=== PATIENT | female | born 1935 | race Caucasian/White ===

== ENCOUNTER → 2019-05-13 10:59 | Outpatient (CLI) | payer MEDICARE, MEDICAID, SELFPAY ==
--- NOTE | 2019-05-13 | DI.CT.S_ITS ---
PROCEDURE: CT ABDOMEN PELVIS WO CON INDICATIONS: Generalized abdominal pain TECHNIQUE: After the administration of oral contrast, 5 mm thick sections acquired from the diaphragms to the symphysis. 5 mm coronal and sagittal reformats were performed. For radiation dose reduction, the following was used: automated exposure control, adjustment of mA and/or kV according to patient size. COMPARISON: None. FINDINGS: Image quality: Excellent. ABDOMEN: Lung bases: Lung bases are clear. Heart size is normal. Solid organs: Liver is normal in size. Gallbladder is unremarkable. Pancreas is normal in size. Spleen is normal in size. No adrenal nodules. Both kidneys are normal in size, without hydronephrosis or nephrolithiasis. Peritoneum and bowel: Moderate hiatal hernia. Mobile cecum, in the upper abdomen. Question malignant narrowing of the ascending colon versus marked inflammatory or ischemic narrowing of the ascending colon. Mild inflammatory change in the surrounding fat. Large amount of fecal debris present in the transverse colon. There is mild diffuse rectal wall thickening. There is a moderately large rectal fecal impaction. Nodes and vessels: No retroperitoneal or mesenteric adenopathy by size criteria. Aorta and inferior vena cava are normal in size. Miscellaneous: No ventral hernias. PELVIS: Genitourinary: Bladder wall thickness is normal. Miscellaneous: Bilateral inguinal hernias containing nonobstructed bowel. Uterus is surgically absent. Bones: No suspicious bony lesions. No vertebral body compression fractures. IMPRESSION: 1. Abnormal ascending colon, possibly representing a malignancy versus inflammatory or ischemic colitis. 2. Mobile cecum incidentally noted. 3. Large amount of fecal debris. 4. Moderately large rectal fecal impaction. Rectum is thickened. 5. Moderate hiatal hernia. 6. Bilateral inguinal hernias containing nonobstructed bowel. Dictated by: Jacob Moise M.D. on 05/13/2019 at 14:20 Approved by: Jacob Moise M.D. on 05/13/2019 at 14:35
== END ==
PROVIDERS: Referring Provider Internal Medicine; Visit Provider Internal Medicine
DX: R10.84 Generalized abdominal pain (principal); Q43.3 Congenital malformations of intestinal fixation; K59.00 Constipation, unspecified; K40.20 Bilateral inguinal hernia, without obstruction or gangrene, not specified as recurrent; K44.9 Diaphragmatic hernia without obstruction or gangrene; Z90.710 Acquired absence of both cervix and uterus
CPT/HCPCS: 74176

== ENCOUNTER → 2019-05-16 09:49 | Outpatient (CLI) | payer MEDICARE, MEDICAID, SELFPAY ==
[2019-05-16 10:38] LABS: Add Manual Diff / Slide Review NO; Basophils Absolute Auto 100 /uL (0-100); Basophils Percent Auto 1.2 % (0-2); Eosinophils Absolute Auto 200 /uL (0-450); Eosinophils Percent Auto 2.8 % (2-4); Hematocrit 42.1 % (36-46); Hemoglobin 14.1 g/dL (12.0-16.0); Lymphocytes Absolute Auto 1700 /uL (1100-4500); Lymphocytes Percent Auto 27.6 % (25-40); Mean Corpuscular HGB Conc 33.5 % (30-36); Mean Corpuscular Hemoglobin 30.1 PG (26-34); Mean Corpuscular Volume 89.8 fL (80-100); Monocytes Absolute Auto 500 /uL (0-900); Monocytes Percent Auto 8.7 % (3-14); Neutrophils Absolute Auto 3700 /uL (1500-7000); Neutrophils Percent Auto 59.7 % (50-75); Platelet Count 297 X10^3/uL (150-400); Red Blood Cell Count 4.69 X10^6/uL (4.0-5.2); Red Cell Distribution Width 13.6 % (11.6-14.8); White Blood Cell Count 6.2 X10^3/uL (4.5-11.0)
[2019-05-16 11:19] LABS: Alanine Aminotransferase 10 IU/L (<35); Albumin 4.4 g/dL (3.5-5.0); Albumin Globulin Ratio 1.4 (1.0-2.8); Alkaline Phosphatase 74 U/L (38-126); Aspartate Aminotransferase 22 IU/L (14-36); BUN Creatinine Ratio 17.5 (6-22); Bilirubin Total 0.4 mg/dL (0.2-1.3); Blood Urea Nitrogen 14 mg/dL (7-17); Calcium 10.2 mg/dL (8.4-10.2); Carbon Dioxide 31 mmol/L (22-32); Chloride 104 mmol/L (98-107); Estimated Glomerular Filt Rate > 60.0 mL/min (>60); Globulin 3.2 g/dL (1.7-4.1); Glucose 98 mg/dL (80-110); HEMOLYSIS < 15 (0-50); Potassium 4.8 mmol/L (3.4-5.1); Sodium 141 mmol/L (137-145); Total Protein 7.6 g/dL (6.3-8.2)
== END ==
PROVIDERS: PCP Internal Medicine; Referring Provider Internal Medicine; Visit Provider Internal Medicine
DX: R10.84 Generalized abdominal pain (principal)
CPT/HCPCS: 36415; 80053; 85025

== ENCOUNTER → 2020-07-06 12:07 | Outpatient (CLI) | payer MEDICARE, MEDICAID, SELFPAY ==
[2020-07-06] MEDS: COVID-19 VACC #1, MRNA(MOD) 100 MCG/0.5 ML VIAL IM (12:14)
== END ==
PROVIDERS: PCP Internal Medicine; Visit Provider Internal Medicine
DX: Z23 Encounter for immunization (principal)
CPT/HCPCS: 0011A; 91301

== ENCOUNTER → 2020-08-03 12:09 | Outpatient (CLI) | payer MEDICARE, MEDICAID, SELFPAY ==
[2020-08-03] MEDS: COVID-19 VACC #2, MRNA(MOD) 100 MCG/0.5 ML VIAL IM (12:22)
== END ==
PROVIDERS: PCP Internal Medicine; Visit Provider Internal Medicine
DX: Z23 Encounter for immunization (principal)
CPT/HCPCS: 0012A; 91301

== ENCOUNTER 2021-05-01 10:30 | Outpatient (RCR) | payer OTHER, MEDICAID, SELFPAY ==
--- NOTE | 2021-03-14 16:00 | PT.OIE ---
Current Diagnoses Scoliosis, unspecified (03/14/21) Pain in thoracic spine (03/14/21) Visit Care Team Role Provider Type Alex Tan MD Attending Provider Physician Family Provider Primary Care Provider Referring Provider Specialty: Family Practice Address: [facility] [place], [address] Email: [email or web address] Physical Therapy Initial Evaluation PT-OP-A Visit Information Start: 03/13/21 15:57 Freq: Status: Active Protocol: Document 03/14/21 11:15 AMB (Rec: 03/15/21 15:57 AMB [email or web address]) Out-Patient Physical Therapy Visit Information Visit Information Visit Type Initial Evaluation Visit Start Time 11:15 Visit Stop Time 12:00 Total Visit Minutes 45 Visit Number 1 PT-OP-B Current Condition Start: 03/13/21 15:57 Freq: Status: Active Protocol: Document 03/14/21 11:18 AMB (Rec: 03/14/21 11:31 AMB [id number]) Current Condition History of Current Condition Onset Date chronic Current Complaints R sided back pain History of Current Condition Didn't have back problems until age 61. Then had to go to a chiropractor. Does get back spasms a couple times a month. A couple of weeks ago went 4 days with little sleep due to the pain. Denies numbness/ tingling/radiating sx. Used to walk around the block but hasn't in the past few months due to the pain. Does go grocery shopping but otherwise doesn't walk much. Lives alone, has a son who lives in [place]. Treatment Goals Patient/Caregiver Goals Reduce pain Prior Functional Status Baseline Function- ADL's Modified Independent Baseline Function- Mobility Modified Independent Personal Factors Other Personal Factors That May Effect cognition Therapy/Recovery PT-OP-C Subjective Start: 03/13/21 15:57 Freq: Status: Active Protocol: Document 03/14/21 11:15 AMB (Rec: 03/17/21 09:48 AMB [email or web address]) Patient Questionnaires Oswestry Low Back Index Oswestry Score 31 Oswestry Impairment 20 to 39% Impaired (Score 20- 39) PT-OP-G Mobility & Gait Start: 03/13/21 15:57 Freq: Status: Active Protocol: Document 03/14/21 11:15 AMB (Rec: 03/17/21 09:48 AMB [email or web address]) OP Gait Assessment Comments Gait Comments Decreased trunk rotation with gait PT-OP-J Posture/Palpation/Skin Start: 03/13/21 15:57 Freq: Status: Active Protocol: Document 03/14/21 11:15 AMB (Rec: 03/17/21 09:48 AMB [email or web address]) Posture Evaluation Comments Posture Comments Rib hump on right thoracic spine with forward flexion. Stiff spine throughout Palpation Assessment Location One Palpation Details Tigth QL on R PT-OP-K Range of Motion Start: 03/13/21 15:57 Freq: Status: Active Protocol: Document 03/14/21 11:15 AMB (Rec: 03/17/21 09:48 AMB [email or web address]) Lumbar Spine Range of Motion Lumbar Spine Active Percentage Testing Position Standing Flexion 50 Extension 10 Lateral Flexion Left 25 Lateral Flexion Right 50 Ankle and Foot Goniometric Range of Motion Ankle and Foot ROM Limitations Comments dorsiflexion limited to neutral bilaterally PT-OP-M Strength Start: 03/13/21 15:57 Freq: Status: Active Protocol: Document 03/14/21 11:15 AMB (Rec: 03/17/21 09:48 AMB [email or web address]) Hip Strength Hip Manual Muscle Testing Right Flexion (L2) 4- Good- Extension (S1) 4- Good- Abduction 4 Good Left Flexion (L2) 4- Good- Extension (S1) 4- Good- Abduction 4 Good PT-OP-Q Treatments Start: 03/13/21 15:57 Freq: Status: Active Protocol: Document 03/14/21 11:15 AMB (Rec: 03/17/21 09:48 AMB [email or web address]) Therapeutic Exercises Supine Exercises 3 Supine Exercise Name ousmane pose- lateral 2 Supine Exercise Name Open book Reps/Minutes 10 1 Supine Exercise Name LTR Reps/Minutes 10 PT-OP-T Assessment and Plan Start: 03/13/21 15:57 Freq: Status: Active Protocol: Document 03/14/21 11:15 AMB (Rec: 03/17/21 10:08 AMB [email or web address]) Physical Therapy Assessment Rehab Potential Rehabilitation Potential Fair Evaluation Complexity Number of Personal Factors/Comorbidities 1-2 Number of Body Systems Impaired 4 or More Clinical Presentation at Evaluation Evolving Impairments Impairments Activity Tolerance,Functional Activities,Gait,Pain,Posture, ROM,Strength Goals Two Impairment Pain Short Term Goal (STG) Kaelyn will walk for 6 minutes without an increase in back pain. STG Duration 4 weeks Half-Way Goal (LTG) Kaelyn will roll over in bed without back pain. LTG Duration 8 weeks One Impairment HEP Short Term Goal (STG) Kaelyn will be independent and consistent with a HEP for gentle range of motion and core strengthening. STG Duration 4 weeks Assessment Summary Assessment Kaelyn attends physical therapy with a 4 month exacerbation of her chronic midback pain. She does have moderate scoliosis. She states she doesn't have osteoporosis but can't tell me when her last DEXA was, I do not have records one way or the other. Her history was somewhat fragmented, but it sounds like she was more active historically, but now has a difficult time walking because of back spasms which come on for days at time and make it difficult to move or to sleep. She is specifically hoping there is something she can do for the back spasms, but is unable to say what causes them or how often the come on, or really any sort of pattern to them. Will educate in an appropriate HEP and offer modalities, self care for when she does get a spasm. Physical Therapy Plan Frequency and Duration Frequency of Treatment 2x/Week Duration of Treatment 8 weeks Plan of Care Start Date 03/14/21 Plan of Care End Date 05/09/21 Therapeutic Interventions Therapeutic Interventions Home Exercise Program,Manual Therapy,Neuromuscular Re- education,Self-Care/Home Management,Therapeutic Activities,Therapeutic Exercises Modalities Cold Pack/Ice Massage,Electric Stimulation,Hot Packs Next Visit Focus/Plan Next Note Type Treatment Note Next Visit Plan follow up on HEP: LTR, open book, ousmane pose. Could consider e-stim/heat if pt is having muscle spasm.
--- NOTE | 2021-03-14 16:00 | PT.OPPOC ---
Physical, Occupational & Speech Therapy At [facility] Current Diagnoses Scoliosis, unspecified (03/14/21) Pain in thoracic spine (03/14/21) Visit Care Team Role Provider Type Alex Tan MD Attending Provider Physician Family Provider Primary Care Provider Referring Provider Specialty: Family Practice Address: [facility] [place], [facility] Email: [email or web address] Plan Of Care PT-OP-T Assessment and Plan Start: 03/13/21 15:57 Freq: Status: Active Protocol: Document 03/14/21 11:15 AMB (Rec: 03/17/21 10:08 AMB [email or web address]) Physical Therapy Assessment Rehab Potential Rehabilitation Potential Fair Evaluation Complexity Number of Personal Factors/Comorbidities 1-2 Number of Body Systems Impaired 4 or More Clinical Presentation at Evaluation Evolving Impairments Impairments Activity Tolerance,Functional Activities,Gait,Pain,Posture, ROM,Strength Goals Two Impairment Pain Short Term Goal (STG) Kaelyn will walk for 6 minutes without an increase in back pain. STG Duration 4 weeks Retirement Goal (LTG) Kaelyn will roll over in bed without back pain. LTG Duration 8 weeks One Impairment HEP Short Term Goal (STG) Kaelyn will be independent and consistent with a HEP for gentle range of motion and core strengthening. STG Duration 4 weeks Assessment Summary Assessment Kaelyn attends physical therapy with a 4 month exacerbation of her chronic midback pain. She does have moderate scoliosis. She states she doesn't have osteoporosis but can't tell me when her last DEXA was, I do not have records one way or the other. Her history was somewhat fragmented, but it sounds like she was more active historically, but now has a difficult time walking because of back spasms which come on for days at time and make it difficult to move or to sleep. She is specifically hoping there is something she can do for the back spasms, but is unable to say what causes them or how often the come on, or really any sort of pattern to them. Will educate in an appropriate HEP and offer modalities, self care for when she does get a spasm. Physical Therapy Plan Frequency and Duration Frequency of Treatment 2x/Week Duration of Treatment 8 weeks Plan of Care Start Date 03/14/21 Plan of Care End Date 05/09/21 Therapeutic Interventions Therapeutic Interventions Home Exercise Program,Manual Therapy,Neuromuscular Re- education,Self-Care/Home Management,Therapeutic Activities,Therapeutic Exercises Modalities Cold Pack/Ice Massage,Electric Stimulation,Hot Packs Next Visit Focus/Plan Next Note Type Treatment Note Next Visit Plan follow up on HEP: LTR, open book, ousmane pose. Could consider e-stim/heat if pt is having muscle spasm. Plan of Care Dates Plan of Care Start Date 03/14/21 Plan of Care End Date 05/09/21 Electronically Signed by: Erin Ferro, PT 03/17/21 1002 Please Sign and Return: I have reviewed this Plan of Care and certify that the skilled therapy services above are required to meet the patient?s needs. Physician Signature Date Printed Name and Credentials Clinical Instructor Signature Printed Name and Credentials
--- NOTE | 2021-03-20 14:27 | PT.OTN ---
Current Diagnoses Scoliosis, unspecified (03/20/21) Pain in thoracic spine (03/20/21) Physical Therapy Treatment Note PT-OP-A Visit Information Start: 03/13/21 15:57 Freq: Status: Active Protocol: Document 03/20/21 09:00 AMB (Rec: 03/20/21 14:26 AMB [email or web address]) Out-Patient Physical Therapy Visit Information Visit Information Visit Type Treatment Note Visit Start Time 09:00 Visit Stop Time 09:55 Total Visit Minutes 55 Visit Number 2 PT-OP-B Current Condition Start: 03/13/21 15:57 Freq: Status: Active Protocol: Document 03/14/21 11:18 AMB (Rec: 03/14/21 11:31 AMB [id number]) Current Condition History of Current Condition Onset Date chronic Current Complaints R sided back pain History of Current Condition Didn't have back problems until age 61. Then had to go to a chiropractor. Does get back spasms a couple times a month. A couple of weeks ago went 4 days with little sleep due to the pain. Denies numbness/ tingling/radiating sx. Used to walk around the block but hasn't in the past few months due to the pain. Does go grocery shopping but otherwise doesn't walk much. Lives alone, has a son who lives in [place]. Treatment Goals Patient/Caregiver Goals Reduce pain Prior Functional Status Baseline Function- ADL's Modified Independent Baseline Function- Mobility Modified Independent Personal Factors Other Personal Factors That May Effect cognition Therapy/Recovery PT-OP-C Subjective Start: 03/13/21 15:57 Freq: Status: Active Protocol: Document 03/20/21 09:00 AMB (Rec: 03/20/21 14:26 AMB [email or web address]) OP-PT Subjective Patient Comments Patient Comments Pt states she has tried the exercises at home and they went ok, no new spasms PT-OP-G Mobility & Gait Start: 03/13/21 15:57 Freq: Status: Active Protocol: Document 03/14/21 11:15 AMB (Rec: 03/17/21 09:48 AMB [email or web address]) OP Gait Assessment Comments Gait Comments Decreased trunk rotation with gait PT-OP-J Posture/Palpation/Skin Start: 03/13/21 15:57 Freq: Status: Active Protocol: Document 03/14/21 11:15 AMB (Rec: 03/17/21 09:48 AMB [email or web address]) Posture Evaluation Comments Posture Comments Rib hump on right thoracic spine with forward flexion. Stiff spine throughout Palpation Assessment Location One Palpation Details Tigth QL on R PT-OP-K Range of Motion Start: 03/13/21 15:57 Freq: Status: Active Protocol: Document 03/14/21 11:15 AMB (Rec: 03/17/21 09:48 AMB [email or web address]) Lumbar Spine Range of Motion Lumbar Spine Active Percentage Testing Position Standing Flexion 50 Extension 10 Lateral Flexion Left 25 Lateral Flexion Right 50 Ankle and Foot Goniometric Range of Motion Ankle and Foot ROM Limitations Comments dorsiflexion limited to neutral bilaterally PT-OP-M Strength Start: 03/13/21 15:57 Freq: Status: Active Protocol: Document 03/14/21 11:15 AMB (Rec: 03/17/21 09:48 AMB [email or web address]) Hip Strength Hip Manual Muscle Testing Right Flexion (L2) 4- Good- Extension (S1) 4- Good- Abduction 4 Good Left Flexion (L2) 4- Good- Extension (S1) 4- Good- Abduction 4 Good PT-OP-Q Treatments Start: 03/13/21 15:57 Freq: Status: Active Protocol: Document 03/20/21 09:00 AMB (Rec: 03/20/21 14:26 AMB [email or web address]) Therapeutic Exercises Supine Exercises 5 Supine Exercise Name supine TA march Reps/Minutes 2x10 4 Supine Exercise Name bridges Reps/Minutes 10 3 Supine Exercise Name ousmane pose- lateral 1 Supine Exercise Name LTR Reps/Minutes 10 Sidelying Exercises 1 Sidelying Exercise Name clamshell Reps/Minutes 2x10 Sitting Exercises 1 Sitting Exercise Name 65cm Comments pelvic circles PT-OP-R Modalities Start: 03/13/21 15:57 Freq: Status: Active Protocol: Document 03/20/21 09:00 AMB (Rec: 03/20/21 14:27 AMB [email or web address]) Electric Stimulation Electric Stimulation Interferential Current (IFC) Body Location R mid/low back Duration (Minutes) 13 Patient Position Hooklying Combined With Heat/Cold Hot Pack PT-OP-T Assessment and Plan Start: 03/13/21 15:57 Freq: Status: Active Protocol: Document 03/20/21 09:00 AMB (Rec: 12/15/21 14:26 AMB [email or web address]) Physical Therapy Assessment Goals Two Impairment Pain Short Term Goal (STG) Kaelyn will walk for 6 minutes without an increase in back pain. STG Duration 4 weeks Correction Goal (LTG) Kaelyn will roll over in bed without back pain. LTG Duration 8 weeks One Impairment HEP Short Term Goal (STG) Kaelyn will be independent and consistent with a HEP for gentle range of motion and core strengthening. STG Duration 4 weeks Assessment Summary Assessment Kaelyn tolerated exercises well today, will need to follow up on how she did the next day and then prescribe a new written program. Physical Therapy Plan Next Visit Focus/Plan Next Note Type Treatment Note Next Visit Plan follow up on HEP: LTR, open book, ousmane pose. Progress written HEP
--- NOTE | 2021-03-28 16:00 | PT.OTN ---
Current Diagnoses Scoliosis, unspecified (03/28/21) Pain in thoracic spine (03/28/21) Physical Therapy Treatment Note PT-OP-A Visit Information Start: 03/13/21 15:57 Freq: Status: Active Protocol: Document 03/28/21 10:30 AMB (Rec: 04/03/21 08:16 AMB [id number]) Out-Patient Physical Therapy Visit Information Visit Information Visit Type Treatment Note Visit Start Time 10:30 Visit Stop Time 11:00 Total Visit Minutes 30 Visit Number 3 PT-OP-B Current Condition Start: 03/13/21 15:57 Freq: Status: Active Protocol: Document 03/14/21 11:18 AMB (Rec: 03/14/21 11:31 AMB [id number]) Current Condition History of Current Condition Onset Date chronic Current Complaints R sided back pain History of Current Condition Didn't have back problems until age 61. Then had to go to a chiropractor. Does get back spasms a couple times a month. A couple of weeks ago went 4 days with little sleep due to the pain. Denies numbness/ tingling/radiating sx. Used to walk around the block but hasn't in the past few months due to the pain. Does go grocery shopping but otherwise doesn't walk much. Lives alone, has a son who lives in [place]. Treatment Goals Patient/Caregiver Goals Reduce pain Prior Functional Status Baseline Function- ADL's Modified Independent Baseline Function- Mobility Modified Independent Personal Factors Other Personal Factors That May Effect cognition Therapy/Recovery PT-OP-C Subjective Start: 03/13/21 15:57 Freq: Status: Active Protocol: Document 03/28/21 10:30 AMB (Rec: 04/03/21 08:16 AMB [id number]) OP-PT Subjective Patient Comments Patient Comments No new back spasms, long car ride down to [place] went fine . Has been doing exercises. PT-OP-G Mobility & Gait Start: 03/13/21 15:57 Freq: Status: Active Protocol: Document 03/14/21 11:15 AMB (Rec: 03/17/21 09:48 AMB [email or web address]) OP Gait Assessment Comments Gait Comments Decreased trunk rotation with gait PT-OP-J Posture/Palpation/Skin Start: 03/13/21 15:57 Freq: Status: Active Protocol: Document 03/14/21 11:15 AMB (Rec: 03/17/21 09:48 AMB [email or web address]) Posture Evaluation Comments Posture Comments Rib hump on right thoracic spine with forward flexion. Stiff spine throughout Palpation Assessment Location One Palpation Details Tigth QL on R PT-OP-K Range of Motion Start: 03/13/21 15:57 Freq: Status: Active Protocol: Document 03/14/21 11:15 AMB (Rec: 03/17/21 09:48 AMB [email or web address]) Lumbar Spine Range of Motion Lumbar Spine Active Percentage Testing Position Standing Flexion 50 Extension 10 Lateral Flexion Left 25 Lateral Flexion Right 50 Ankle and Foot Goniometric Range of Motion Ankle and Foot ROM Limitations Comments dorsiflexion limited to neutral bilaterally PT-OP-M Strength Start: 03/13/21 15:57 Freq: Status: Active Protocol: Document 03/14/21 11:15 AMB (Rec: 03/17/21 09:48 AMB [email or web address]) Hip Strength Hip Manual Muscle Testing Right Flexion (L2) 4- Good- Extension (S1) 4- Good- Abduction 4 Good Left Flexion (L2) 4- Good- Extension (S1) 4- Good- Abduction 4 Good PT-OP-Q Treatments Start: 03/13/21 15:57 Freq: Status: Active Protocol: Document 03/28/21 10:30 AMB (Rec: 04/03/21 08:16 AMB [id number]) Therapeutic Exercises Supine Exercises 5 Supine Exercise Name supine TA march Reps/Minutes 2x10 4 Supine Exercise Name bridges Reps/Minutes 10 Sidelying Exercises 1 Sidelying Exercise Name clamshell Reps/Minutes 2x10 Standing Exercises 1 Standing Exercise Name mini squat Reps/Minutes 10 Comments vc for form PT-OP-R Modalities Start: 03/13/21 15:57 Freq: Status: Active Protocol: Document 03/20/21 09:00 AMB (Rec: 03/20/21 14:27 AMB [email or web address]) Electric Stimulation Electric Stimulation Interferential Current (IFC) Body Location R mid/low back Duration (Minutes) 13 Patient Position Hooklying Combined With Heat/Cold Hot Pack PT-OP-T Assessment and Plan Start: 03/13/21 15:57 Freq: Status: Active Protocol: Document 03/28/21 10:30 AMB (Rec: 04/03/21 08:16 AMB [id number]) Physical Therapy Assessment Assessment Summary Assessment Pt seemed to tolerate increased strengthening exercises well but will need to follow up regarding tolerance following. Physical Therapy Plan Frequency and Duration Frequency of Treatment 2x/Week Duration of Treatment 8 weeks Plan of Care Start Date 03/14/21 Plan of Care End Date 05/09/21 Therapeutic Interventions Therapeutic Interventions Home Exercise Program,Manual Therapy,Neuromuscular Re- education,Self-Care/Home Management,Therapeutic Activities,Therapeutic Exercises Modalities Cold Pack/Ice Massage,Electric Stimulation,Hot Packs Next Visit Focus/Plan Next Visit Plan Follow up on clam, bridge, mini squat
--- NOTE | 2021-04-09 10:25 | PT.OTN ---
Current Diagnoses Scoliosis, unspecified (04/09/21) Pain in thoracic spine (04/09/21) Physical Therapy Treatment Note PT-OP-A Visit Information Start: 03/13/21 15:57 Freq: Status: Active Protocol: Document 04/09/21 09:50 SP (Rec: 04/09/21 10:32 SP [id number]) Out-Patient Physical Therapy Visit Information Visit Information Visit Type Treatment Note Visit Start Time 09:50 Visit Stop Time 10:25 Total Visit Minutes 35 Visit Number 4 Number of JOB TRACER Visits 1 PT-OP-B Current Condition Start: 03/13/21 15:57 Freq: Status: Active Protocol: Document 03/14/21 11:18 AMB (Rec: 03/14/21 11:31 AMB [id number]) Current Condition History of Current Condition Onset Date chronic Current Complaints R sided back pain History of Current Condition Didn't have back problems until age 61. Then had to go to a chiropractor. Does get back spasms a couple times a month. A couple of weeks ago went 4 days with little sleep due to the pain. Denies numbness/ tingling/radiating sx. Used to walk around the block but hasn't in the past few months due to the pain. Does go grocery shopping but otherwise doesn't walk much. Lives alone, has a son who lives in [place]. Treatment Goals Patient/Caregiver Goals Reduce pain Prior Functional Status Baseline Function- ADL's Modified Independent Baseline Function- Mobility Modified Independent Personal Factors Other Personal Factors That May Effect cognition Therapy/Recovery PT-OP-C Subjective Start: 03/13/21 15:57 Freq: Status: Active Protocol: Document 04/09/21 09:50 SP (Rec: 04/09/21 10:32 SP [id number]) OP-PT Subjective Patient Comments Patient Comments Pt reports back feels fine. Did my exercises before came over. Not sure where going to do the standing exercise at home. PT-OP-G Mobility & Gait Start: 03/13/21 15:57 Freq: Status: Active Protocol: Document 03/14/21 11:15 AMB (Rec: 03/17/21 09:48 AMB [email or web address]) OP Gait Assessment Comments Gait Comments Decreased trunk rotation with gait PT-OP-J Posture/Palpation/Skin Start: 03/13/21 15:57 Freq: Status: Active Protocol: Document 03/14/21 11:15 AMB (Rec: 03/17/21 09:48 AMB [email or web address]) Posture Evaluation Comments Posture Comments Rib hump on right thoracic spine with forward flexion. Stiff spine throughout Palpation Assessment Location One Palpation Details Tigth QL on R PT-OP-K Range of Motion Start: 03/13/21 15:57 Freq: Status: Active Protocol: Document 03/14/21 11:15 AMB (Rec: 03/17/21 09:48 AMB [email or web address]) Lumbar Spine Range of Motion Lumbar Spine Active Percentage Testing Position Standing Flexion 50 Extension 10 Lateral Flexion Left 25 Lateral Flexion Right 50 Ankle and Foot Goniometric Range of Motion Ankle and Foot ROM Limitations Comments dorsiflexion limited to neutral bilaterally PT-OP-M Strength Start: 03/13/21 15:57 Freq: Status: Active Protocol: Document 03/14/21 11:15 AMB (Rec: 03/17/21 09:48 AMB [email or web address]) Hip Strength Hip Manual Muscle Testing Right Flexion (L2) 4- Good- Extension (S1) 4- Good- Abduction 4 Good Left Flexion (L2) 4- Good- Extension (S1) 4- Good- Abduction 4 Good PT-OP-Q Treatments Start: 03/13/21 15:57 Freq: Status: Active Protocol: Document 04/09/21 09:50 SP (Rec: 04/09/21 10:32 SP [id number]) Therapeutic Exercises Supine Exercises 5 Supine Exercise Name supine TA march Reps/Minutes 2x10 Comments cued TA fac during descent LE transition to elevating LE, no wobble 4 Supine Exercise Name bridges (performs on floor at home) Reps/Minutes x10 Comments cued not end range height and core fac, decrease LB recruit 1 Supine Exercise Name LTR- HEP review Reps/Minutes x10 Comments cued ankles together, slow movement side to side Sidelying Exercises open book Sidelying Exercise Name review HEP Side bilateral Resistance AROM Reps/Minutes 3 reps hold 5 sec Comments cued for proper form written, cued head turn with arm 1 Sidelying Exercise Name clamshell (cued L>R stationary pelvis) HEP review Side bilateral Reps/Minutes 2x10 Comments cued stationary pelvis, stacked alignment shld & hips, slow pacing control Standing Exercises 1 Standing Exercise Name mini squat Equipment Used chair back front contact, chair behind to mini squat to Reps/Minutes 10 Comments cues for hip hinge and light contact chair so not pull back , more stable Gait Training Gait Activity walking Device Used 0 Level of Assistance SBA Surface firm Distance/Duration 100ft Treatment Focus improve trunk stability, even cadance, core stability Comments cued tall posture, core facilitation, level pelvis to decrease wt shift antalgic gait. PT-OP-R Modalities Start: 03/13/21 15:57 Freq: Status: Active Protocol: Document 03/20/21 09:00 AMB (Rec: 03/20/21 14:27 AMB [email or web address]) Electric Stimulation Electric Stimulation Interferential Current (IFC) Body Location R mid/low back Duration (Minutes) 13 Patient Position Hooklying Combined With Heat/Cold Hot Pack PT-OP-T Assessment and Plan Start: 03/13/21 15:57 Freq: Status: Active Protocol: Document 04/09/21 09:50 SP (Rec: 04/09/21 10:32 SP [id number]) Physical Therapy Assessment Goals Two Impairment Pain Short Term Goal (STG) Kaelyn will walk for 6 minutes without an increase in back pain. STG Duration 4 weeks Senior Living Goal (LTG) Kaelyn will roll over in bed without back pain. LTG Duration 8 weeks One Impairment HEP Short Term Goal (STG) Kaelyn will be independent and consistent with a HEP for gentle range of motion and core strengthening. STG Duration 4 weeks Assessment Summary Assessment Pt improved clamshell form post cues for stacked alignment, core engagement and slow pacing, I feel my belly and hip muscles more with no pain just tiring. Education core engagement and posture with improved stability walking during end of tx Physical Therapy Plan Frequency and Duration Frequency of Treatment 2x/Week Duration of Treatment 8 weeks Plan of Care Start Date 03/14/21 Plan of Care End Date 05/09/21 Therapeutic Interventions Therapeutic Interventions Home Exercise Program,Manual Therapy,Neuromuscular Re- education,Self-Care/Home Management,Therapeutic Activities,Therapeutic Exercises Modalities Cold Pack/Ice Massage,Electric Stimulation,Hot Packs Next Visit Focus/Plan Next Visit Plan Recheck HEP: core marching, mini squat, bridge, side clamshell form, give hand out next tx. Progress gait stability.
--- NOTE | 2021-04-17 13:27 | PT.OTN ---
Current Diagnoses Scoliosis, unspecified (04/17/21) Pain in thoracic spine (04/17/21) Physical Therapy Treatment Note PT-OP-A Visit Information Start: 03/13/21 15:57 Freq: Status: Active Protocol: Document 04/17/21 10:30 AMB (Rec: 04/17/21 12:04 AMB [id number]) Out-Patient Physical Therapy Visit Information Visit Information Visit Type Treatment Note Visit Start Time 10:35 Visit Stop Time 11:15 Total Visit Minutes 40 Visit Number 5 PT-OP-B Current Condition Start: 03/13/21 15:57 Freq: Status: Active Protocol: Document 03/14/21 11:18 AMB (Rec: 03/14/21 11:31 AMB [id number]) Current Condition History of Current Condition Onset Date chronic Current Complaints R sided back pain History of Current Condition Didn't have back problems until age 61. Then had to go to a chiropractor. Does get back spasms a couple times a month. A couple of weeks ago went 4 days with little sleep due to the pain. Denies numbness/ tingling/radiating sx. Used to walk around the block but hasn't in the past few months due to the pain. Does go grocery shopping but otherwise doesn't walk much. Lives alone, has a son who lives in [place]. Treatment Goals Patient/Caregiver Goals Reduce pain Prior Functional Status Baseline Function- ADL's Modified Independent Baseline Function- Mobility Modified Independent Personal Factors Other Personal Factors That May Effect cognition Therapy/Recovery PT-OP-C Subjective Start: 03/13/21 15:57 Freq: Status: Active Protocol: Document 04/17/21 10:45 AMB (Rec: 04/17/21 13:27 AMB [id number]) OP-PT Subjective Patient Comments Patient Comments Had a near back spasm last week after shopping at [employer]. [place] fine the next day. PT-OP-G Mobility & Gait Start: 03/13/21 15:57 Freq: Status: Active Protocol: Document 03/14/21 11:15 AMB (Rec: 03/17/21 09:48 AMB [email or web address]) OP Gait Assessment Comments Gait Comments Decreased trunk rotation with gait PT-OP-J Posture/Palpation/Skin Start: 03/13/21 15:57 Freq: Status: Active Protocol: Document 03/14/21 11:15 AMB (Rec: 03/17/21 09:48 AMB [email or web address]) Posture Evaluation Comments Posture Comments Rib hump on right thoracic spine with forward flexion. Stiff spine throughout Palpation Assessment Location One Palpation Details Tigth QL on R PT-OP-K Range of Motion Start: 03/13/21 15:57 Freq: Status: Active Protocol: Document 03/14/21 11:15 AMB (Rec: 03/17/21 09:48 AMB [email or web address]) Lumbar Spine Range of Motion Lumbar Spine Active Percentage Testing Position Standing Flexion 50 Extension 10 Lateral Flexion Left 25 Lateral Flexion Right 50 Ankle and Foot Goniometric Range of Motion Ankle and Foot ROM Limitations Comments dorsiflexion limited to neutral bilaterally PT-OP-M Strength Start: 03/13/21 15:57 Freq: Status: Active Protocol: Document 03/14/21 11:15 AMB (Rec: 03/17/21 09:48 AMB [email or web address]) Hip Strength Hip Manual Muscle Testing Right Flexion (L2) 4- Good- Extension (S1) 4- Good- Abduction 4 Good Left Flexion (L2) 4- Good- Extension (S1) 4- Good- Abduction 4 Good PT-OP-Q Treatments Start: 03/13/21 15:57 Freq: Status: Active Protocol: Document 04/17/21 10:45 AMB (Rec: 04/17/21 13:27 AMB [id number]) Therapeutic Exercises Supine Exercises 5 Supine Exercise Name supine TA march Reps/Minutes 2x10 Comments cued TA fac during descent LE transition to elevating LE, no wobble 4 Supine Exercise Name bridges (performs on floor at home) Reps/Minutes x10 Comments cued to facilitate cues, decrease LB 1 Supine Exercise Name LTR- HEP review Reps/Minutes x10 Comments slow movement side to side Sidelying Exercises open book Sidelying Exercise Name review HEP Side bilateral Resistance AROM Reps/Minutes 3 reps hold 5 sec Comments cued for proper form written, cued head turn with arm 1 Sidelying Exercise Name clamshell (cued L>R stationary pelvis) HEP review Side bilateral Reps/Minutes 2x10 Comments cued stationary pelvis, stacked alignment shld & hips, slow pacing control Gait Training Gait Activity walking Device Used SPC- right hand Level of Assistance SBA Surface firm Distance/Duration 200 Treatment Focus improve trunk stability, even cadance, core stability Comments cued tall posture, core facilitation, level pelvis to decrease wt shift antalgic gait. PT-OP-R Modalities Start: 03/13/21 15:57 Freq: Status: Active Protocol: Document 03/20/21 09:00 AMB (Rec: 03/20/21 14:27 AMB [email or web address]) Electric Stimulation Electric Stimulation Interferential Current (IFC) Body Location R mid/low back Duration (Minutes) 13 Patient Position Hooklying Combined With Heat/Cold Hot Pack PT-OP-T Assessment and Plan Start: 03/13/21 15:57 Freq: Status: Active Protocol: Document 04/17/21 10:45 AMB (Rec: 04/17/21 13:27 AMB [id number]) Physical Therapy Assessment Goals Two Impairment Pain Short Term Goal (STG) Kaelyn will walk for 6 minutes without an increase in back pain. STG Duration 4 weeks [facility]dc Goal (LTG) Kaelyn will roll over in bed without back pain. LTG Duration 8 weeks One Impairment HEP Short Term Goal (STG) Kaelyn will be independent and consistent with a HEP for gentle range of motion and core strengthening. STG Duration 4 weeks Assessment Summary Assessment Kaelyn had difficulty not looking down while ambulating with SPC. Discussed how she could get a SPC in the community as this is her preference. Discussed appropriate height of cane and gait training. Her form with her HEP is improving, although she does not like squats, discussed purpose for them, but pt states she was sore from them for a day and does not like them. Physical Therapy Plan Frequency and Duration Frequency of Treatment 2x/Week Duration of Treatment 8 weeks Plan of Care Start Date 03/14/21 Plan of Care End Date 05/09/21 Therapeutic Interventions Therapeutic Interventions Home Exercise Program,Manual Therapy,Neuromuscular Re- education,Self-Care/Home Management,Therapeutic Activities,Therapeutic Exercises Modalities Cold Pack/Ice Massage,Electric Stimulation,Hot Packs Next Visit Focus/Plan Next Visit Plan Recheck HEP: core marching, mini squat, bridge, side clamshell form, give hand out next tx. Progress gait stability.
--- NOTE | 2021-04-24 11:29 | PT.OTN ---
Current Diagnoses Scoliosis, unspecified (04/24/21) Pain in thoracic spine (04/24/21) Physical Therapy Treatment Note PT-OP-A Visit Information Start: 03/13/21 15:57 Freq: Status: Active Protocol: Document 04/24/21 10:38 AMB (Rec: 04/24/21 11:29 AMB [id number]) Out-Patient Physical Therapy Visit Information Visit Information Visit Type Treatment Note Visit Start Time 10:35 Visit Stop Time 11:15 Total Visit Minutes 40 Visit Number 6 PT-OP-B Current Condition Start: 03/13/21 15:57 Freq: Status: Active Protocol: Document 03/14/21 11:18 AMB (Rec: 03/14/21 11:31 AMB [id number]) Current Condition History of Current Condition Onset Date chronic Current Complaints R sided back pain History of Current Condition Didn't have back problems until age 61. Then had to go to a chiropractor. Does get back spasms a couple times a month. A couple of weeks ago went 4 days with little sleep due to the pain. Denies numbness/ tingling/radiating sx. Used to walk around the block but hasn't in the past few months due to the pain. Does go grocery shopping but otherwise doesn't walk much. Lives alone, has a son who lives in [place]. Treatment Goals Patient/Caregiver Goals Reduce pain Prior Functional Status Baseline Function- ADL's Modified Independent Baseline Function- Mobility Modified Independent Personal Factors Other Personal Factors That May Effect cognition Therapy/Recovery PT-OP-C Subjective Start: 03/13/21 15:57 Freq: Status: Active Protocol: Document 04/24/21 10:38 AMB (Rec: 04/24/21 11:29 AMB [id number]) OP-PT Subjective Patient Comments Patient Comments Needed to lie on the floor most of the day on Thursday, didn't go into full back spasm but continued to have pain with standing and sitting all day Thursday. PT-OP-G Mobility & Gait Start: 03/13/21 15:57 Freq: Status: Active Protocol: Document 03/14/21 11:15 AMB (Rec: 03/17/21 09:48 AMB [email or web address]) OP Gait Assessment Comments Gait Comments Decreased trunk rotation with gait PT-OP-J Posture/Palpation/Skin Start: 03/13/21 15:57 Freq: Status: Active Protocol: Document 03/14/21 11:15 AMB (Rec: 03/17/21 09:48 AMB [email or web address]) Posture Evaluation Comments Posture Comments Rib hump on right thoracic spine with forward flexion. Stiff spine throughout Palpation Assessment Location One Palpation Details Tigth QL on R PT-OP-K Range of Motion Start: 03/13/21 15:57 Freq: Status: Active Protocol: Document 03/14/21 11:15 AMB (Rec: 03/17/21 09:48 AMB [email or web address]) Lumbar Spine Range of Motion Lumbar Spine Active Percentage Testing Position Standing Flexion 50 Extension 10 Lateral Flexion Left 25 Lateral Flexion Right 50 Ankle and Foot Goniometric Range of Motion Ankle and Foot ROM Limitations Comments dorsiflexion limited to neutral bilaterally PT-OP-M Strength Start: 03/13/21 15:57 Freq: Status: Active Protocol: Document 03/14/21 11:15 AMB (Rec: 03/17/21 09:48 AMB [email or web address]) Hip Strength Hip Manual Muscle Testing Right Flexion (L2) 4- Good- Extension (S1) 4- Good- Abduction 4 Good Left Flexion (L2) 4- Good- Extension (S1) 4- Good- Abduction 4 Good PT-OP-Q Treatments Start: 03/13/21 15:57 Freq: Status: Active Protocol: Document 04/24/21 10:38 AMB (Rec: 04/24/21 11:29 AMB [id number]) Therapeutic Exercises Supine Exercises hip flexor stretch Reps/Minutes 30x3 Comments off side of table hamstring stretch Reps/Minutes 30x3 Comments with towel 5 Supine Exercise Name supine TA march Reps/Minutes 2x10 Comments cued TA fac during descent LE transition to elevating LE, no wobble 4 Supine Exercise Name bridges (performs on floor at home) Reps/Minutes x10 Comments cued to facilitate cues, decrease LB Sidelying Exercises 1 Sidelying Exercise Name clamshell (cued L>R stationary pelvis) HEP review Side bilateral Reps/Minutes 2x10 Comments cued stationary pelvis, stacked alignment shld & hips, slow pacing control Standing Exercises hamstring/calf stretch Reps/Minutes 30x4 Comments on stairs PT-OP-R Modalities Start: 03/13/21 15:57 Freq: Status: Active Protocol: Document 03/20/21 09:00 AMB (Rec: 03/20/21 14:27 AMB [email or web address]) Electric Stimulation Electric Stimulation Interferential Current (IFC) Body Location R mid/low back Duration (Minutes) 13 Patient Position Hooklying Combined With Heat/Cold Hot Pack PT-OP-T Assessment and Plan Start: 03/13/21 15:57 Freq: Status: Active Protocol: Document 04/24/21 10:38 AMB (Rec: 04/24/21 11:29 AMB [id number]) Physical Therapy Assessment Assessment Summary Assessment Provided written handout today . Pt verbalizes she thinks exercises are helping as she hasn't gone into a full back spasm, but continues to have back pain that she feels she needs to lie down on the floor most of the day for intermittently (one day in last week). Physical Therapy Plan Frequency and Duration Frequency of Treatment 2x/Week Duration of Treatment 8 weeks Plan of Care Start Date 03/14/21 Plan of Care End Date 05/09/21 Therapeutic Interventions Therapeutic Interventions Home Exercise Program,Manual Therapy,Neuromuscular Re- education,Self-Care/Home Management,Therapeutic Activities,Therapeutic Exercises Modalities Cold Pack/Ice Massage,Electric Stimulation,Hot Packs
--- NOTE | 2021-05-01 08:05 | PT.OPDS ---
Current Diagnoses Scoliosis, unspecified (05/01/21) Pain in thoracic spine (05/01/21) Visit Care Team Role Provider Type Alex Tan MD Attending Provider Physician Family Provider Primary Care Provider Referring Provider Specialty: Family Practice Address: [address] [place], [address] Email: [email or web address] Visit Number Visit Number 7 Discharge Summary PT-OP-B Current Condition Start: 03/13/21 15:57 Freq: Status: Active Protocol: Document 03/14/21 11:18 AMB (Rec: 03/14/21 11:31 AMB [id number]) Current Condition History of Current Condition Onset Date chronic Current Complaints R sided back pain History of Current Condition Didn't have back problems until age 61. Then had to go to a chiropractor. Does get back spasms a couple times a month. A couple of weeks ago went 4 days with little sleep due to the pain. Denies numbness/ tingling/radiating sx. Used to walk around the block but hasn't in the past few months due to the pain. Does go grocery shopping but otherwise doesn't walk much. Lives alone, has a son who lives in [place]. Treatment Goals Patient/Caregiver Goals Reduce pain Prior Functional Status Baseline Function- ADL's Modified Independent Baseline Function- Mobility Modified Independent Personal Factors Other Personal Factors That May Effect cognition Therapy/Recovery PT-OP-C Subjective Start: 03/13/21 15:57 Freq: Status: Active Protocol: Document 05/01/21 11:11 AMB (Rec: 05/07/21 08:03 AMB [id number]) OP-PT Subjective Patient Comments Patient Comments Kaelyn had a bad flare up of her back pain over the weekend and this was really disappointing to her. Feels like she has to worry about doing everything flaring up her back. Was trying to sweep her front porch previously and wondering if that made it flare up. PT-OP-G Mobility & Gait Start: 03/13/21 15:57 Freq: Status: Active Protocol: Document 03/14/21 11:15 AMB (Rec: 03/17/21 09:48 AMB [email or web address]) OP Gait Assessment Comments Gait Comments Decreased trunk rotation with gait PT-OP-J Posture/Palpation/Skin Start: 03/13/21 15:57 Freq: Status: Active Protocol: Document 03/14/21 11:15 AMB (Rec: 03/17/21 09:48 AMB [email or web address]) Posture Evaluation Comments Posture Comments Rib hump on right thoracic spine with forward flexion. Stiff spine throughout Palpation Assessment Location One Palpation Details Tigth QL on R PT-OP-K Range of Motion Start: 03/13/21 15:57 Freq: Status: Active Protocol: Document 03/14/21 11:15 AMB (Rec: 03/17/21 09:48 AMB [email or web address]) Lumbar Spine Range of Motion Lumbar Spine Active Percentage Testing Position Standing Flexion 50 Extension 10 Lateral Flexion Left 25 Lateral Flexion Right 50 Ankle and Foot Goniometric Range of Motion Ankle and Foot ROM Limitations Comments dorsiflexion limited to neutral bilaterally PT-OP-M Strength Start: 03/13/21 15:57 Freq: Status: Active Protocol: Document 03/14/21 11:15 AMB (Rec: 03/17/21 09:48 AMB [email or web address]) Hip Strength Hip Manual Muscle Testing Right Flexion (L2) 4- Good- Extension (S1) 4- Good- Abduction 4 Good Left Flexion (L2) 4- Good- Extension (S1) 4- Good- Abduction 4 Good PT-OP-T Assessment and Plan Start: 03/13/21 15:57 Freq: Status: Active Protocol: Document 05/01/21 11:11 AMB (Rec: 05/07/21 08:03 AMB [id number]) Physical Therapy Assessment Goals Two Impairment Pain Short Term Goal (STG) Kaelyn will walk for 6 minutes without an increase in back pain. STG Duration Intermittently met Shelter Goal (LTG) Kaelyn will roll over in bed without back pain. LTG Duration Intermittently met One Impairment HEP Short Term Goal (STG) Kaelyn will be independent and consistent with a HEP for gentle range of motion and core strengthening. STG Duration MET Assessment Summary Assessment Pt will continue on with HEP. Discussed body mechanics, and this is difficult due to pt's cognitive status. Pt is dissapointed to have pain flare ups, but does have a HEP that she can do both when she is flared up and when she is feeling better. Physical Therapy Plan Discharge Physical Therapy Discharge Reasons Patient Request
--- NOTE | 2021-05-01 12:00 | PT.OTN ---
Current Diagnoses Scoliosis, unspecified (05/01/21) Pain in thoracic spine (05/01/21) Physical Therapy Treatment Note PT-OP-A Visit Information Start: 03/13/21 15:57 Freq: Status: Active Protocol: Document 05/01/21 11:11 AMB (Rec: 05/01/21 11:16 AMB [id number]) Out-Patient Physical Therapy Visit Information Visit Information Visit Type Discharge Summary Visit Start Time 10:30 Visit Stop Time 11:15 Total Visit Minutes 45 Visit Number 7 PT-OP-B Current Condition Start: 03/13/21 15:57 Freq: Status: Active Protocol: Document 03/14/21 11:18 AMB (Rec: 03/14/21 11:31 AMB [id number]) Current Condition History of Current Condition Onset Date chronic Current Complaints R sided back pain History of Current Condition Didn't have back problems until age 61. Then had to go to a chiropractor. Does get back spasms a couple times a month. A couple of weeks ago went 4 days with little sleep due to the pain. Denies numbness/ tingling/radiating sx. Used to walk around the block but hasn't in the past few months due to the pain. Does go grocery shopping but otherwise doesn't walk much. Lives alone, has a son who lives in [place]. Treatment Goals Patient/Caregiver Goals Reduce pain Prior Functional Status Baseline Function- ADL's Modified Independent Baseline Function- Mobility Modified Independent Personal Factors Other Personal Factors That May Effect cognition Therapy/Recovery PT-OP-C Subjective Start: 03/13/21 15:57 Freq: Status: Active Protocol: Document 05/01/21 11:11 AMB (Rec: 05/07/21 08:03 AMB [id number]) OP-PT Subjective Patient Comments Patient Comments Kaelyn had a bad flare up of her back pain over the weekend and this was really disappointing to her. Feels like she has to worry about doing everything flaring up her back. Was trying to sweep her front porch previously and wondering if that made it flare up. PT-OP-G Mobility & Gait Start: 03/13/21 15:57 Freq: Status: Active Protocol: Document 03/14/21 11:15 AMB (Rec: 03/17/21 09:48 AMB [email or web address]) OP Gait Assessment Comments Gait Comments Decreased trunk rotation with gait PT-OP-J Posture/Palpation/Skin Start: 03/13/21 15:57 Freq: Status: Active Protocol: Document 03/14/21 11:15 AMB (Rec: 03/17/21 09:48 AMB [email or web address]) Posture Evaluation Comments Posture Comments Rib hump on right thoracic spine with forward flexion. Stiff spine throughout Palpation Assessment Location One Palpation Details Tigth QL on R PT-OP-K Range of Motion Start: 03/13/21 15:57 Freq: Status: Active Protocol: Document 03/14/21 11:15 AMB (Rec: 03/17/21 09:48 AMB [email or web address]) Lumbar Spine Range of Motion Lumbar Spine Active Percentage Testing Position Standing Flexion 50 Extension 10 Lateral Flexion Left 25 Lateral Flexion Right 50 Ankle and Foot Goniometric Range of Motion Ankle and Foot ROM Limitations Comments dorsiflexion limited to neutral bilaterally PT-OP-M Strength Start: 03/13/21 15:57 Freq: Status: Active Protocol: Document 03/14/21 11:15 AMB (Rec: 03/17/21 09:48 AMB [email or web address]) Hip Strength Hip Manual Muscle Testing Right Flexion (L2) 4- Good- Extension (S1) 4- Good- Abduction 4 Good Left Flexion (L2) 4- Good- Extension (S1) 4- Good- Abduction 4 Good PT-OP-Q Treatments Start: 03/13/21 15:57 Freq: Status: Active Protocol: Document 05/01/21 11:11 AMB (Rec: 05/07/21 08:03 AMB [id number]) Therapeutic Activity Therapeutic Activity 1 Name Body mechanics Comments Bending, lifting, twisting, sweeping Manual Therapy Treatment Soft Tissue Mobilization 1 Body Location QL/parapsinals Mobilization Type Myofascial Release,Strumming, Sustained Pressure PT-OP-R Modalities Start: 03/13/21 15:57 Freq: Status: Active Protocol: Document 03/20/21 09:00 AMB (Rec: 03/20/21 14:27 AMB [email or web address]) Electric Stimulation Electric Stimulation Interferential Current (IFC) Body Location R mid/low back Duration (Minutes) 13 Patient Position Hooklying Combined With Heat/Cold Hot Pack PT-OP-T Assessment and Plan Start: 03/13/21 15:57 Freq: Status: Active Protocol: Document 05/01/21 11:11 AMB (Rec: 05/07/21 08:03 [facility] [id number]) Physical Therapy Assessment Goals Two Impairment Pain Short Term Goal (STG) Kaelyn will walk for 6 minutes without an increase in back pain. STG Duration Intermittently met [employer] Goal (LTG) Kaelyn will roll over in bed without back pain. LTG Duration Intermittently met One Impairment HEP Short Term Goal (STG) Kaelyn will be independent and consistent with a HEP for gentle range of motion and core strengthening. STG Duration MET Assessment Summary Assessment Pt will continue on with HEP. Discussed body mechanics, and this is difficult due to pt's cognitive status. Pt is dissapointed to have pain flare ups, but does have a HEP that she can do both when she is flared up and when she is feeling better. Physical Therapy Plan Discharge Physical Therapy Discharge Reasons Patient Request
== END 2021-05-07 12:46 | disposition home or self-care (01) ==
LOC: PHYS 10:30
PROVIDERS: Family Provider Family Medicine; PCP Family Medicine; Referring Provider Family Medicine; Visit Provider Family Medicine
DX: M41.9 Scoliosis, unspecified (principal); M54.6 Pain in thoracic spine
CPT/HCPCS: 97014; 97110; 97116; 97140; 97162; 97530; G0283

== ENCOUNTER → 2022-02-20 15:09 | Outpatient (CLI) | payer OTHER, MEDICAID, SELFPAY | PROVIDERS: Family Provider Family Medicine; PCP Family Medicine; Referring Provider Family Medicine; Visit Provider Family Medicine | DX: Z13.820 Encounter for screening for osteoporosis (principal); M81.0 Age-related osteoporosis without current pathological fracture; Z78.0 Asymptomatic menopausal state; Z90.710 Acquired absence of both cervix and uterus | CPT/HCPCS: 77080 ==

== ENCOUNTER → 2022-06-19 10:34 | Outpatient (CLI) | payer OTHER, MEDICAID, SELFPAY ==
--- NOTE | 2022-06-19 | DI.RAD.S_ITS ---
PROCEDURE: XR CERVICAL SPINE 2V OR 3V INDICATIONS: Scoliosis, unspecified TECHNIQUE: 3 view(s) of the cervical spine were acquired. COMPARISON: None. FINDINGS: Bones: No fractures or dislocations to the C7 level. The lateral masses of C1 appear intact on the odontoid view. No suspicious bony lesions. Grade 1 anterolisthesis of C4 on C5 and C5 on C6. Mild disc height loss at all levels. Moderate facet arthrosis at C3-4 and C4-5. Mild facet arthrosis at remaining levels. Soft tissues: No prevertebral soft tissue swelling. IMPRESSION: Multilevel, mild degenerative disc disease and [id number] facet arthrosis. Dictated by: Kirby Correia M.D. on 06/19/2022 at 11:57 Approved by: Kirby Correia M.D. on 06/19/2022 at 12:01
--- NOTE | 2022-06-19 | DI.RAD.S_ITS ---
PROCEDURE: XR THORACIC SPINE 3V INDICATIONS: Scoliosis, unspecified TECHNIQUE: 3 views of the thoracic spine were acquired. COMPARISON: None. FINDINGS: Bones: Multiple compression deformities of the thoracic spine, including T12, T11, T9, T8, T7, T6, T5, T4, T2. No suspicious bony lesions. 12 pairs of ribs are noted, and appear intact where visualized. Convex right scoliosis, Coleman angle of 48?. Moderate disc height loss at all levels. Soft tissues: No paravertebral stripe thickening. IMPRESSION: 1. Convex right scoliosis, Coleman angle of 48?. 2. Multiple compression deformities of the thoracic spine. Dictated by: Kirby Correia M.D. on 06/19/2022 at 12:01 Approved by: Kirby Correia M.D. on 06/19/2022 at 12:08
--- NOTE | 2022-06-19 | DI.RAD.S_ITS ---
PROCEDURE: XR LUMBAR SPINE 2-3V INDICATIONS: Scoliosis, unspecified TECHNIQUE: 3 views of the lumbar spine were acquired. COMPARISON: None. FINDINGS: Bones: 5 [id number] vertebrae are present. Convex left scoliosis, Coleman angle of 26?. Unxz-fo-dxurmffs disc height loss at all levels. Facet arthrosis L5-S1. Soft tissues: Overlying bowel gas pattern is normal. No suspicious soft tissue calcifications. IMPRESSION: 1. Convex left scoliosis, Coleman angle of 26?. 2. Bfsi-qr-uzwsommv degenerative disc disease and lumbosacral facet arthrosis. Dictated by: Kirby Correia M.D. on 06/19/2022 at 12:08 Approved by: Kirby Correia M.D. on 06/19/2022 at 12:09
== END ==
PROVIDERS: Family Provider Family Medicine; PCP Family Medicine; Referring Provider Family Medicine; Visit Provider Family Medicine
DX: M41.9 Scoliosis, unspecified (principal); M47.812 Spondylosis without myelopathy or radiculopathy, cervical region; M50.30 Other cervical disc degeneration, unspecified cervical region; M43.8X4 Other specified deforming dorsopathies, thoracic region; M51.36 Other intervertebral disc degeneration, lumbar region; M47.817 Spondylosis without myelopathy or radiculopathy, lumbosacral region
CPT/HCPCS: 72040; 72072; 72100

== ENCOUNTER → 2022-12-19 15:47 | Outpatient (CLI) | payer OTHER, MEDICAID, SELFPAY ==
--- NOTE | 2022-12-19 15:48 | DI.RAD.S_ITS ---
PROCEDURE: XR LUMBAR SPINE 2-3V INDICATIONS: SCOLIOSIS, OTHER INTERVERTEBRAL DISC DEGENERATION TECHNIQUE: 3 views of the lumbar spine were acquired. COMPARISON: [facility], CR, XR LUMBAR SPINE 2-3V, 06/19/2022, 10:40. FINDINGS: Bones: Severe S shaped scoliosis of the thoracolumbar spine curving to the right in the thoracic spine and the left in the lumbar spine. No vertebral body height loss. Multilevel degenerative changes with facet arthropathy. 5 efo-vbk-buejmfn vertebrae are present. No vertebral body compression fractures. No suspicious bony lesions. Soft tissues: Overlying bowel gas pattern is normal. No suspicious soft tissue calcifications. IMPRESSION: 1. Severe S-shaped scoliosis of the thoracolumbar spine. 2. Multilevel degenerative changes with facet arthropathy in the lower lumbar spine. Dictated by: Jeffrey Murray M.D. on 12/19/2022 at 17:02 Approved by: Jeffrey Murray M.D. on 12/19/2022 at 17:04
--- NOTE | 2022-12-19 15:48 | DI.RAD.S_ITS ---
PROCEDURE: XR THORACIC SPINE 2V INDICATIONS: SCOLIOSIS, OTHER INTERVERTEBRAL DISC DEGENERATION TECHNIQUE: 3 views of the thoracic spine were acquired. COMPARISON: [facility], , XR THORACIC SPINE 3V, 06/19/2022, 10:40. FINDINGS: Bones: S shaped scoliosis of the thoracolumbar spine with rightward curvature of the thoracic spine having a Coleman angle of 54?. The right apex is at T10. No vertebral body height loss. Soft tissues: No paravertebral stripe thickening. IMPRESSION: Dextroscoliosis of the thoracolumbar spine with the right apex at T10. Dictated by: Jeffrey Murray M.D. on 12/19/2022 at 17:05 Approved by: Jeffrey Murray M.D. on 12/19/2022 at 17:06
== END ==
PROVIDERS: Family Provider Family Medicine; PCP Family Medicine; Referring Provider Chiropractor; Visit Provider Chiropractor
DX: M51.34 Other intervertebral disc degeneration, thoracic region (principal); M41.9 Scoliosis, unspecified; M47.816 Spondylosis without myelopathy or radiculopathy, lumbar region
CPT/HCPCS: 72070; 72100

== ENCOUNTER → 2024-08-16 09:18 | Outpatient (CLI) | payer OTHER, MEDICAID, SELFPAY ==
[2024-08-16 11:07] LABS: Alanine Aminotransferase 15 IU/L (<35); Albumin 4.7 g/dL (3.5-5.0); Albumin Globulin Ratio 1.6 (1.0-2.8); Alkaline Phosphatase 56 U/L (38-126); Aspartate Aminotransferase 28 IU/L (14-36); Bilirubin Total 0.6 mg/dL (0.2-1.3); Blood Urea Nitrogen 20 mg/dL (7-17); Calcium 10.8 mg/dL (8.4-10.2); Carbon Dioxide 31 mmol/L (22-32); Chloride 104 mmol/L (98-107); Cholesterol 247 mg/dL (140-199); Estimated Glomerular Filt Rate > 60 mL/min (>60); Globulin 2.9 g/dL (1.7-4.1); Glucose 92 mg/dL (70-99); HDL Cholesterol 63 mg/dL (40-60); HEMOLYSIS < 15 (0-50); LDL Cholesterol Calculated 162 mg/dL (<100); Potassium 4.2 mmol/L (3.4-5.1); Sodium 144 mmol/L (137-145); Total Protein 7.6 g/dL (6.3-8.2); Triglycerides 112 mg/dL (35-150)
[2024-08-16 11:09] LABS: Add Manual Diff / Slide Review NO; Basophils Absolute Auto 100 /uL (0-100); Basophils Percent Auto 0.7 % (0-2); Eosinophils Absolute Auto 100 /uL (0-450); Eosinophils Percent Auto 1.4 % (2-4); Hematocrit 41.4 % (36-46); Lymphocytes Absolute Auto 1700 /uL (1100-4500); Lymphocytes Percent Auto 21.8 % (25-40); Mean Corpuscular HGB Conc 33.8 % (30-36); Mean Corpuscular Hemoglobin 31.4 PG (26-34); Mean Corpuscular Volume 92.9 fL (80-100); Monocytes Absolute Auto 600 /uL (0-900); Monocytes Percent Auto 7.4 % (3-14); Neutrophils Absolute Auto 5500 /uL (1500-7000); Neutrophils Percent Auto 68.7 % (50-75); Platelet Count 270 X10^3/uL (150-400); Red Blood Cell Count 4.46 X10^6/uL (4.0-5.2); Red Cell Distribution Width 13.9 % (11.6-14.8)
[2024-08-16 11:32] LABS: TSH w/ Reflex to FT4 2.07 uIU/mL (0.47-4.68)
== END ==
LOC: LAB 09:19
PROVIDERS: Family Provider Family Medicine; PCP Family Medicine; Referring Provider Family Medicine; Visit Provider Family Medicine
DX: E78.00 Pure hypercholesterolemia, unspecified (principal); Z13.29 Encounter for screening for other suspected endocrine disorder; Z13.220 Encounter for screening for lipoid disorders
CPT/HCPCS: 36415; 80053; 80061; 84443; 85025